=== PATIENT | female | born 1965 | race Caucasian/White ===

== ENCOUNTER 2021-07-18 11:42 | Emergency (ER) | payer SELFPAY ==
[~2021-07-18] VITALS: Ht 167.6 cm; Wt 60.0 kg
[2021-07-18 11:49] VITALS: BP 106/66
== END 2021-07-18 12:37 | disposition left against medical advice (07) ==
LOC: ER 12:00
DX: Z53.21 Procedure and treatment not carried out due to patient leaving prior to being seen by health care provider (principal)